=== PATIENT | male | born 1960 | race Caucasian/White ===

== ENCOUNTER → 2023-08-13 | Outpatient (CLI) | payer OTHER ==
--- NOTE | 2023-08-13 17:39 | XR ---
EXAMINATION TYPE: XR chest 2V DATE OF EXAM: 08/13/2023 COMPARISON: None INDICATION: Dyspnea COPD TECHNIQUE: Frontal and lateral views of the chest are obtained. FINDINGS: The heart size is normal. The pulmonary vasculature is normal. There is hyperinflation flattening the diaphragms compatible with COPD. Increased retrosternal airspa ce and increased AP diameter is noted. There is an old open reduction internal fixation right clavicle.. IMPRESSION: 1. No acute pulmonary process. 2. COPD
== END | disposition home or self-care (01) ==
LOC: RADXRMAIN 14:22
PROVIDERS: ATTEND Internal Medicine Critical Care Medicine
DX: J44.9 Chronic obstructive pulmonary disease, unspecified (principal)
CPT/HCPCS: 71046

== ENCOUNTER → 2023-11-12 | Outpatient (CLI) | payer OTHER | END | disposition home or self-care (01) | LOC: LABWHC1 12:47 | PROVIDERS: ATTEND Internal Medicine Critical Care Medicine | DX: E55.9 Vitamin D deficiency, unspecified (principal) | CPT/HCPCS: 36415; 82306 ==